=== PATIENT | female | born 1950 | race Hispanic/Latino ===

== ENCOUNTER 2020-05-18 01:15 | Emergency (ER) | payer MEDICARE ==
[2020-05-18 01:24] VITALS: BP 184/78
[2020-05-18 01:39] LABS: Basophils % (Auto) 0.6 % (0.0-1.8); Eosinophils # (Auto) 0.2 K/mm3 (0.0-0.4); Eosinophils % (Auto) 2.1 % (0.0-4.3); Hematocrit 40.8 % (30.3-42.9); Hemoglobin 14.2 gm/dl (10.1-14.3); Lymphocytes # (Auto) 3.5 K/mm3 (1.2-5.4); Lymphocytes % (Auto) 40.6 % (13.4-35.0); Mean Corpuscular HGB Conc 35 % (30-34); Mean Corpuscular Volume 91 fl (79-97); Monocytes # (Auto) 0.6 K/mm3 (0.0-0.8); Monocytes % (Auto) 7.6 % (0.0-7.3); Platelet Count 235 K/mm3 (140-440); Red Blood Count 4.48 M/mm3 (3.65-5.03); Red Cell Distribution Width 13.3 % (13.2-15.2)
[2020-05-18 01:48] LABS: INR 0.93 (0.87-1.13)
[2020-05-18 01:49] LABS: Partial Thromboplastin Time 30.5 Sec. (24.2-36.6)
[2020-05-18 02:00] LABS: Alanine Aminotransferase 13 units/L (7-56); Albumin 4.1 g/dL (3.9-5); Blood Urea Nitrogen 21 mg/dL (7-17); Calcium 9.3 mg/dL (8.4-10.2); Hemolysis Index 5
[2020-05-18 02:07] LABS: BUN/Creatinine Ratio 30
--- NOTE | 2020-05-18 03:59 | Emergency Department Report ---
ED General Adult HPI - General Chief complaint: Dental/Oral Stated complaint: SEVERE MOUTH BLEEDING AFTER DENTAL PROCEDURE Source: patient, family Mode of arrival: Ambulatory Limitations: No Limitations - History of Present Illness Initial comments: Patient is a 69-year-old -[place] female with a history of hypertension, you-vfeyimu-fmgcyrsmk diabetes, and stroke who presents to the ED with complaint of persistent bleeding left maxillary gingiva for 3 hours after having extensive multiple dental extraction procedures a week ago. Patient states that the bleeding got worse in the last 6 hours despite using various gauzes at home and drinking cold water. Patient states that she has been trying to chew gauze to help stop the bleeding with no relief. Patient states that she is on regular dose of aspirin daily because of her previous history of stroke. Patient denies dizziness, syncope, chest pain, shortness of breath, nausea, vomiting, headache, change in vision or seizures, fever and chills. MD Complaint: bleeding gums s/p multiple dental extraction procedures -: Sudden, hour(s) (6), week(s) (1) Location: mouth Radiation: non-radiation Severity scale (0 -10): 4 Quality: aching, dull Consistency: constant Improves with: none Worsens with: none Associated Symptoms: denies other symptoms. denies: confusion, chest pain, cough, diaphoresis, headaches, loss of appetite, malaise, nausea/vomiting, shortness of breath Treatments Prior to Arrival: none - Related Data Allergies Allergy/AdvReac Type Severity Reaction Status Date / Time No Known Allergies Allergy Unverified 05/18/20 01:24 ED Review of Systems ROS: Stated complaint: SEVERE MOUTH BLEEDING AFTER DENTAL PROCEDURE Other details as noted in HPI Constitutional: denies: chills, fever Eyes: denies: eye pain, eye discharge, vision change ENT: other (Painful left maxillary gingival bleeding gum from recent dental extraction surgery). denies: ear pain, throat pain Respiratory: denies: cough, shortness of breath, wheezing Cardiovascular: denies: chest pain, palpitations Endocrine: no symptoms reported Gastrointestinal: denies: abdominal pain, nausea, diarrhea Genitourinary: denies: urgency, dysuria, discharge Musculoskeletal: denies: back pain, joint swelling, arthralgia Skin: denies: rash, lesions Neurological: denies: headache, weakness, paresthesias Psychiatric: denies: anxiety, depression Hematological/Lymphatic: denies: easy bleeding, easy bruising ED Past Medical Hx - Past Medical History Hx Hypertension: Yes Hx CVA: Yes Hx Diabetes: Yes - Surgical History Additional Surgical History: - Social History Smoking Status: Never Smoker ED Physical Exam - General Limitations: No Limitations General appearance: alert, in no apparent distress - Head Head exam: Present: atraumatic, normocephalic, normal inspection - Eye Eye exam: Present: normal appearance, PERRL, EOMI Pupils: Present: normal accommodation - ENT ENT exam: Present: mucous membranes moist, TM's normal bilaterally, normal external ear exam, other (Bleeding left maxillary gingiva from an open wound over recent dental extraction procedure) - Neck Neck exam: Present: normal inspection, full ROM - Respiratory Respiratory exam: Present: normal lung sounds bilaterally. Absent: respiratory distress, wheezes, rales, stridor, chest wall tenderness, accessory muscle use, prolonged expiratory - Cardiovascular Cardiovascular Exam: Present: regular rate, normal rhythm, normal heart sounds. Absent: systolic murmur, diastolic murmur, rubs, gallop - GI/Abdominal GI/Abdominal exam: Present: soft, normal bowel sounds. Absent: tenderness, guarding, rebound, hyperactive bowel sounds, hypoactive bowel sounds, organomegaly - Extremities Exam Extremities exam: Present: normal inspection, full ROM, normal capillary refill - Back Exam Back exam: Present: normal inspection, full ROM. Absent: tenderness, CVA tenderness (R), CVA tenderness (L), muscle spasm, paraspinal tenderness, vertebral tenderness - Neurological Exam Neurological exam: Present: alert, oriented X3, CN II-XII intact, normal gait, reflexes normal - Psychiatric Psychiatric exam: Present: normal affect, normal mood - Skin Skin exam: Present: warm, dry, intact, normal color. Absent: rash ED Course Vital Signs 05/18/20 01:21 Temperature 97.9 F Pulse Rate 79 Respiratory 16 Rate Blood Pressure 184/78 O2 Sat by Pulse 99 Oximetry ED Medical Decision Making - Lab Data Result diagrams: 05/18/20 01:28 05/18/20 01:28 - Medical Decision Making This is a 69-year-old -[place] female with a history of hypertension, [id number] diabetes, and stroke who presents to the ED with complaint of persistent bleeding left maxillary gingiva for 3 hours after having extensive multiple dental extraction procedures a week ago. Patient states that the bleeding got worse in the last 6 hours despite using various gauzes at home and drinking cold water. Patient states that she has been trying to chew gauze to help stop the bleeding with no relief. Patient states that she is on regular dose of aspirin daily because of her previous history of stroke. In the ED, patient is alert and oriented x3 and is not in distress. The left maxillary gingival surgical wound was evaluated and Surgicel gauze applied and the patient was advised to clench her teeth and gums tightly to enable the Surgicel to go to the surgical wound. Patient was observed in the ED for 1 hour while clenching her gum. On reevaluation, the bleeding gums stopped. Patient was therefore discharged home and advised to follow-up with her dentist 24 to 48 hours for reevaluation. Patient is advised return to the ED immediately if symptoms get worse. - Differential Diagnosis gingivitis; wound dehiscence; dental caries Critical care attestation.: If time is entered above; I have spent that time in minutes in the direct care of this critically ill patient, excluding procedure time. ED Disposition Clinical Impression: Gingival hemorrhage Postoperative wound dehiscence Qualifiers: Encounter type: initial encounter Qualified Code(s): T81.31XA - Disruption of external operation (surgical) wound, not elsewhere classified, initial encounter Disposition: DC-01 TO HOME OR SELFCARE Is pt being admited?: No Does the pt Need Aspirin: No Condition: Stable Time of Disposition: 04:00 Print Language: [place]
== END 2020-05-18 07:00 | disposition home or self-care (01) ==
LOC: ED 01:15
DX: T81.31XA Disruption of external operation (surgical) wound, not elsewhere classified, initial encounter (principal); K06.8 Other specified disorders of gingiva and edentulous alveolar ridge; I10 Essential (primary) hypertension; E11.9 Type 2 diabetes mellitus without complications; Z86.73 Personal history of transient ischemic attack (TIA), and cerebral infarction without residual deficits; Z98.890 Other specified postprocedural states; Y92.89 Other specified places as the place of occurrence of the external cause
CPT/HCPCS: 36415; 80053; 85025; 85610; 85730